=== PATIENT | female | born 1995 | race Caucasian/White ===

== ENCOUNTER 2024-01-26 12:23 | Emergency (ER) | payer OTHER, SELFPAY ==
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
[2024-01-26 12:30] VITALS: BP 125/67; PULSE 70; RESP 18; TEMP 36.5; O2SAT 100; BMI 19.2
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
[2024-01-26 15:52] VITALS: BP 110/68; PULSE 56; RESP 17; TEMP 36.9; O2SAT 100
[2024-01-26 16:44] VITALS: BP 118/68; PULSE 60; RESP 18; TEMP 36.7; O2SAT 99
[2024-01-26 17:16] VITALS: BP 118/68; PULSE 60; RESP 18; TEMP 36.7; O2SAT 100
== END 2024-01-26 17:17 | disposition home or self-care (01) ==
PROVIDERS: Emergency Provider Emergency Medicine
DX: S00.81XA Abrasion of other part of head, initial encounter (principal); Y04.2XXA Assault by strike against or bumped into by another person, initial encounter; Y93.9 Activity, unspecified; Y92.9 Unspecified place or not applicable; Y99.9 Unspecified external cause status; M54.2 Cervicalgia; R68.84 Jaw pain
CPT/HCPCS: 70450; 70486; 72125; 99282; 99284

== ENCOUNTER 2024-06-15 18:21 | Emergency (ER) | payer OTHER, SELFPAY ==
--- NOTE | ~2024-06-15 | CT_ITS ---
EXAMINATION: CT ABDOMEN AND PELVIS WITH CONTRAST CLINICAL INFORMATION: Right lower quadrant pain with nausea and vomiting COMPARISON: Right lower quadrant pain with nausea and vomiting TECHNIQUE: Multidetector volumetric imaging was performed from the superior aspect of the liver through the pubic symphysis with intravenous contrast. A total of 85 mL of Omnipaque 350 was utilized for the study. Sagittal and coronal reformatted images were obtained on the technologist's workstation. This CT examination was performed using dose optimization techniques as appropriate, variously including the following: *Automated exposure control *Adjustment of mA and/or kV according to patient size (this includes techniques or standardized protocols for targeted exams where dose is matched to indication/reason for exam; i.e. extremities or head) *Use of iterative reconstruction technique DLP: 306 mGy-cm FINDINGS: LUNG BASES: The visualized lung bases are unremarkable. LIVER, GALLBLADDER, AND BILIARY TREE: The liver is enlarged measuring 18 cm in greatest length. No focal hepatic lesion. There is some periportal edema present but no gross biliary ductal dilatation is present. The gallbladder appears to contain multiple small polyps, possibly adenomyomatosis. Ultrasound would be best for further evaluation. There is no evidence of radiopaque gallstones, gallbladder wall thickening, or obvious pericholecystic inflammatory changes. PANCREAS: Unremarkable. SPLEEN: Unremarkable. ADRENAL GLANDS: Unremarkable. KIDNEYS AND URETERS: The kidneys are normal in size, shape, and attenuation. No hydronephrosis, hydroureter, or calculi seen. No perinephric stranding. BLADDER: Unremarkable. GASTROINTESTINAL TRACT: The small and large bowel are unremarkable. The appendix is unremarkable. ABDOMINAL WALL: No significant hernia is appreciated. LYMPH NODES: No retroperitoneal lymphadenopathy. VASCULAR: Unremarkable. PELVIC VISCERA: An anteverted uterus is present. The ovaries appear unremarkable with a collapsed crenated cyst with enhancing vilchis on the right. No significant free intraperitoneal fluid is present. OSSEOUS STRUCTURES: Unremarkable. CT/CT abdomen pelvis w IV con IMPRESSION: 1. A definitive cause for the patient's right lower quadrant pain has not been found. The appendix is normal. 2. Incidental note made of mild hepatomegaly, periportal edema and possible gallbladder polyps. Ultrasound would be best for further evaluation. 3. Benign-appearing collapsed right ovarian cyst. Perhaps cyst ruptured could be contributing to the patient's discomfort No additional follow-up is necessary. Fleischner guidelines were followed. Electronically signed by: Dimas Peñaloza MD 06/15/2024 10:18 PM PASHA
[2024-06-15 18:24] VITALS: BP 154/86; PULSE 104; RESP 20; TEMP 36.8; O2SAT 96; BMI 20.2
--- NOTE | 2024-06-15 18:28 | ED_ITS ---
HPI - General Adult General Chief complaint: Abdominal Pain Stated complaint: abd pain Time Seen by Provider: 06/15/24 21:09 Source: patient and old records reviewed Mode of arrival: ambulatory Limitations: no limitations History of Present Illness ED Provider: IVETT HPI narrative: 29 yo female no sig PMH hx of pyloric stenosis surg as , c section notes recent increase in abdominal pain on and off but this AM pain much worse. She reports n/v chills and poor appetite. No symptoms. No fevers. Took tylenol and advil at 5pm no relief. Notes pain in RLQ MD complaint: abdominal pain Onset (ago): day(s) (1) Location: abdomen Radiation: non-radiation Severity: moderate Quality: aching Pain Consistency: constant Relieving factors: none Exacerbating factors: movement Associated symptoms: loss of appetite, malaise and nausea/vomiting Treatments prior to arrival: NSAID Related Data Previous Rx's ?Medication ?Instructions ?Recorded ketorolac 10 mg tablet 10 mg PO TID PRN pain 5 days #15 06/15/24 tabs ondansetron 4 mg disintegrating 4 mg PO Q8H PRN nausea and 06/15/24 tablet vomiting #20 tabs Allergies Allergy/AdvReac Type Severity Reaction Status Date / Time iodine Allergy Hives Verified 06/15/24 18:27 Review of Systems 2 Review of Systems: Constitutional : No Weight loss, No Fever, pos Chills ENT/Mouth : No sore throat, No Rhinorrhea Eyes: No Swelling, No Redness Cardiovascular : No Chest Pain, No SOB, NoEdema Respiratory : No Cough, No Sputum, No Wheezing Gastrointestinal : Positive Nausea, Positive Vomiting, no Diarrhea, positive abdominal Pain, No Hematochezia, No Melena Genitourinary : No Dysuria, No Urinary Frequency, No Hematuria, No Urgency Musculoskeletal : No joint pain, No Myalgias, No Joint Swelling Skin : No Skin Lesions, No rash Neuro : No Weakness, No Numbness, No Dizziness, No Headache All other systems reviewed and are negative. [facility] Past Medical History Attestation statement: The following information was validated with the patient. Source: old records reviewed Medical History (Updated 06/15/24 @ 22:47 by Lilliam Saeed DO) No pertinent past medical history Social History Social History (Updated 06/15/24 @ 21:42 by Lilliam Saeed DO) Alcohol intake: current Alcohol intake frequency: holidays/special occasions only Patient Tobacco Use Status: Never used Tobacco Smoked in Last 30 Days: Yes Use of substances other than those prescribed or required for medical reasons: Yes Substance Use Type: Marijuana Advance Directives: No Advance Directives Information Provided: No Do you have a plan to hurt others: No Plan Patient : No Physical Exam ED Vital Signs: Vital Signs - 24 hr 06/15/24 18:24 06/15/24 20:38 06/15/24 21:28 Temperature 98.3 F 98.3 F 98.1 F Pulse Rate 104 H 69 57 Respiratory Rate 20 20 16 Blood Pressure 154/86 H 121/75 106/71 Pulse Oximetry 96 98 97 Oxygen Delivery Method Room Air Room Air Room Air 06/15/24 22:59 Temperature 98.1 F Pulse Rate 57 Respiratory Rate 16 Blood Pressure 106/71 Pulse Oximetry 97 Oxygen Delivery Method Room Air BMI result Body Mass Index 20.2 Appearance: Alert. Oriented X3. No acute distress. Eyes: Pupils equal, round and reactive to light. ENT: Pharynx normal. Neck: Normal inspection. Neck supple. CVS: Normal heart rate and rhythm. Pulses normal. Respiratory: No respiratory distress. Breath sounds normal. Abdomen: Soft and moderate RLQ ttp no rebound. Skin: Skin warm and dry. Normal skin color. Normal skin turgor. Extremities: No lower extremity edema. No calf ttp Neuro: Oriented X 3. No motor deficit. No sensory deficit. Course Course Course Narrative: RME performed by Desire Clifford PA-C. Patient is a 29 year old assigned female at presenting to the emergency department with severe abdominal pain. Detailed physical exam and review of systems are deferred to the primary products inspectors. Labs ordered. Patient placed back in the waiting room pending room availability and results. Medications Administered Discontinued Medications Generic Name Dose Route Start Last Admin Trade Name Freq PRN Reason Stop Dose Admin Acetaminophen 1,000 mg in 100 mls @ 400 mls/hr 06/15/24 21:23 06/15/24 21:39 Ofirmev IV 06/15/24 21:37 400 mls/hr ONCE ONE Administration Iohexol 85 ml 06/15/24 21:46 06/15/24 21:46 Iohexol 350 Mg/Ml 100 Ml Infus..Btl IV 06/15/24 21:47 85 ml ONCE ONE Administration Ketorolac Tromethamine 15 mg 06/15/24 21:23 06/15/24 21:38 Ketorolac Tromethamine 15 Mg/Ml Vial IVPUSH 06/15/24 21:24 15 mg ONCE ONE Administration Ondansetron HCl 4 mg 06/15/24 21:23 06/15/24 21:38 Ondansetron Hcl 4 Mg/2 Ml Vial IVPUSH 06/15/24 21:24 4 mg ONCE ONE Administration Medical Decision Making Medical Decision Making MDM Narrative: 29 yo female no sig PMH hx of pyloric stenosis surg as infant, c section here with c/o 1 day of RLQ Pain no rebound or guarding reports n/v and chills - at this time basic labs, IV pain control. CT scan to evaluate for colitis, ovarian cyst, renal colic, appendicitis. Differential Diagnosis Differential Diagnoses: The differential diagnosis associated with the presentation includes renal colic, appendicitis, ovarian cyst, colitis Admission/Observation Consideration of admission/observation: Escalation of care including admission/observation considered labs normal CT scan ovarian cyst doubt torsion at this time no IV narcotics abdomen is benign no rebound or guarding Lab Data [facility] Lab Attestation statement: I reviewed the patient's lab results. 06/15/24 18:42 06/15/24 18:42 Labs: Lab Results 06/15/24 06/15/24 Range/Units 18:42 20:46 WBC 11.9 H (4.8-10.8) X10*3/uL RBC 4.45 (4.20-5.50) X10*6/uL Hgb 14.0 (12.0-16.0) g/dl Hct 39.2 (37.0-47.0) % MCV 88.1 (80.0-98.0) fL MCH 31.5 (27.0-33.0) pg MCHC 35.7 H (31.0-35.0) g/dl RDW 11.9 (11.0-16.0) % Plt Count 317 (160-400) X10*3/uL MPV 9.3 L (9.4-12.3) fL Immature Gran % (Auto) 0.3 (0.0-0.4) % Neut % (Auto) 62.3 (45-73) % Lymph % (Auto) 27.1 (20-40) % Meigs % (Auto) 8.7 (2-11) % Eos % (Auto) 0.8 (0-4) % Baso % (Auto) 0.8 (0-2) % Lymph # (Auto) 3.2 (1.2-4.9) X10*3/uL Meigs # (Auto) 1.0 (0.1-1.2) X10*3/uL Eos # (Auto) 0.1 (0.0-0.4) X10*3/uL Baso # (Auto) 0.1 (0.0-0.2) X10*3/uL Abs Immat Gran (auto) 0.03 (0.00-0.03) X10*3/uL Absolute Neuts (auto) 7.4 (2.0-8.3) x10*3/uL Absolute Nucleated RBC 0.000 (0.0-0.012) X10*3/uL Nucleated RBC % (auto) 0.0 (0.0-0.2) /100WBC Sodium 138 (135-145) mmol/L Potassium 4.0 (3.3-5.1) mmol/L Chloride 103 (96-108) mmol/L Carbon Dioxide 26 (22-29) mmol/L Anion Gap 13 (12-20) BUN 17 H (9-16) mg/dL Creatinine 0.79 (0.5-1.4) mg/dL Estim Creat Clear Calc 84.4 Estimated GFR > 60 Random Glucose 95 (60-115) mg/dL Calcium 10.2 (8.4-10.2) mg/dL Magnesium 2.0 (1.6-2.6) mg/dL Total Bilirubin 0.7 (0.0-1.0) mg/dL AST 30 (5-31) U/L ALT 19 (0-31) U/L Alkaline Phosphatase 76 (39-117) U/L Total Protein 7.7 (6.5-8.0) g/dL Albumin 4.7 (3.5-5.0) g/dL Beta HCG, Quant < 2 mIU/mL Urine Color Yellow Urine Appearance Clear Urine pH 6.5 (5.0-9.0) Ur Specific [place] 1.020 (1.005-1.025) Urine Protein Negative (Neg-Trace) mg/dL Urine Glucose (UA) Negative (Negative) mg/dL Urine Ketones Negative (Negative) mg/dL Urine Blood Negative (Negative) Urine Nitrite Negative (Negative) Ur Leukocyte Esterase Negative (Negative) Influenza Type A (PCR) NEGATIVE (Negative) Influenza Type B (PCR) NEGATIVE (Negative) RSV RNA Qual (PCR) NEGATIVE (Negative) SARS-CoV-2 RNA (RT-PCR) NEGATIVE (Negative) Independent Interpretation I performed an independent interpretation of an: CT Scan (ovarian cyst) Radiology Impression Discussion of test interpretation with radiology: I have reviewed the radiologist's reading. External Record Review External record reviewed: Outpatient record Prescription Management I considered prescription management with: Pain Medication and Other Discharge Plan Discharge Clinical Impression: Abdominal pain Qualifiers: Abdominal location: right lower quadrant Qualified Code(s): R10.31 - Right lower quadrant pain Ovarian cyst Qualifiers: Laterality: right Qualified Code(s): N83.201 - Unspecified ovarian cyst, right side Patient Disposition: Home, Self-Care Instructions: Ovarian Cyst (ED), Abdominal Pain (ED) Additional Instructions: labs reassuring return for worsening pain or fevers > 100.4 repeat US of ovary in 4 weeks ultrasound of liver and gallbladder with PCP your labs for liver are normal while on ketorolac do not take ibuprofen/motrin/aleve/naprosyn CT/CT abdomen pelvis w IV con IMPRESSION: 1. A definitive cause for the patient's right lower quadrant pain has not been found. The appendix is normal. 2. Incidental note made of mild hepatomegaly, periportal edema and possible gallbladder polyps. Ultrasound would be best for further evaluation. 3. Benign-appearing collapsed right ovarian cyst. Perhaps cyst ruptured could be contributing to the patient's discomfort No additional follow-up is necessary. Prescriptions: New ketorolac 10 mg tablet 10 mg PO TID PRN (Reason: pain) 5 Days Qty: 15 0RF Rx Instructions: given IV toradol in department ondansetron 4 mg tablet,disintegrating 4 mg PO Q8H PRN (Reason: nausea and vomiting) Qty: 20 0RF Interventions: ED Discharge Assessment Last Done: 06/15/24 22:59 Discharge Date/Time: 06/15/24 23:10 Print Language: Frisian
[2024-06-15 18:46] LABS: MANUAL DIFF FLAG NO
[2024-06-15 18:48] LABS: Basophils Absolute Auto 0.1 X10*3/uL (0.0-0.2); Basophils Percent Auto 0.8 % (0-2); Eosinophils Absolute Auto 0.1 X10*3/uL (0.0-0.4); Eosinophils Percent Auto 0.8 % (0-4); Hematocrit 39.2 % (37.0-47.0); Imm Gran Abs Auto 0.03 X10*3/uL (0.00-0.03); Imm Gran Pct Auto 0.3 % (0.0-0.4); Lymphocytes Absolute Auto 3.2 X10*3/uL (1.2-4.9); Lymphocytes Percent Auto 27.1 % (20-40); Mean Corpuscular HGB Conc 35.7 g/dl (31.0-35.0); Mean Corpuscular Hemoglobin 31.5 pg (27.0-33.0); Mean Corpuscular Volume 88.1 fL (80.0-98.0); Mean Platelet Volume 9.3 fL (9.4-12.3); Monocytes Percent Auto 8.7 % (2-11); Neutrophils Absolute Auto 7.4 x10*3/uL (2.0-8.3); Neutrophils Percent Auto 62.3 % (45-73); Platelet Count 317 X10*3/uL (160-400); Red Blood Count 4.45 X10*6/uL (4.20-5.50); Red Cell Distribution Width 11.9 % (11.0-16.0); White Blood Count 11.9 X10*3/uL (4.8-10.8)
[2024-06-15 19:00] LABS: Alanine Aminotransferase 19 U/L (0-31); Albumin Level 4.7 g/dL (3.5-5.0); Alkaline Phosphatase 76 U/L (39-117); Anion Gap 13 (12-20); Aspartate Amino Transferase 30 U/L (5-31); Bilirubin Total 0.7 mg/dL (0.0-1.0); Blood Urea Nitrogen 17 mg/dL (9-16); Calcium 10.2 mg/dL (8.4-10.2); Carbon Dioxide 26 mmol/L (22-29); Chloride 103 mmol/L (96-108); Creatinine Clr Calc Pharmacy 84.4; Estimated Glomerular Filt Rate > 60; Glucose Random 95 mg/dL (60-115); Sodium 138 mmol/L (135-145); Total Protein 7.7 g/dL (6.5-8.0)
[2024-06-15 19:08] LABS: HCG Quantitative < 2 mIU/mL
[2024-06-15 19:23] LABS: Influenza A PCR NEGATIVE (Negative); Influenza B PCR NEGATIVE (Negative); Resp Syncy Virus RNA Qual PCR NEGATIVE (Negative); SARS COV2 PCR INHOUSE NEGATIVE (Negative)
[2024-06-15 20:38] VITALS: BP 121/75; PULSE 69; RESP 20; TEMP 36.8; O2SAT 98
[2024-06-15 20:54] LABS: Appearance Urine Clear; Color Urine Yellow; Glucose Urine UA Negative (Negative); Leukocyte Esterase Urine Negative (Negative); Nitrite Urine Negative (Negative); PH 6.5 (5.0-9.0); Urine Blood Negative (Negative); Urine Ketones Negative (Negative); Urine Protein Negative (Neg-Trace)
[2024-06-15 21:28] VITALS: BP 106/71; PULSE 57; RESP 16; TEMP 36.7; O2SAT 97
[2024-06-15] MEDS: Ketorolac Tromethamine 15 MG/ML VIAL IVPUSH (21:38)
[2024-06-15] MEDS: ondansetron HCL 4 MG/2 ML VIAL IVPUSH (21:38)
[2024-06-15] MEDS: Acetaminophen 1,000 MG/100 ML PIGGYBACK 400 MG IV (21:39)
--- NOTE | 2024-06-15 21:42 | PC.NURSE ---
#20 IV placed in R-AC, medication administered as ordered, pt went to CT.
[2024-06-15] MEDS: iohexoL 350 MG/ML 100 ML INFUS..BTL 85 ML IV (21:46)
[2024-06-15 22:59] VITALS: BP 106/71; PULSE 57; RESP 16; TEMP 36.7; O2SAT 97
== END 2024-06-15 23:10 | disposition home or self-care (01) ==
PROVIDERS: Physician Assistant Medical; Emergency Provider Emergency Medicine
DX: R10.31 Right lower quadrant pain (principal); N83.201 Unspecified ovarian cyst, right side; R11.2 Nausea with vomiting, unspecified
CPT/HCPCS: 0241U; 36415; 74177; 80053; 81003; 83735; 84702; 85025; 96374; 96375; 99285; J0131; J1885; J2405; Q9967

== ENCOUNTER 2024-09-03 13:38 | Outpatient (AMB) | payer OTHER, SELFPAY ==
[2024-09-03 13:44] VITALS: BP 100/60; BMI 20.1
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
--- OUTSIDE RECORDS SUMMARY | 2024-09-03 13:47 | XMS_ITS | Encounter Summary ---
Author Organization [facility] Address [address] [place] [address] Care Team Providers Care Air Compressor Operator Name Role Phone Pcp, No Primary Care Provider Unavailabl e Ish Hare MD Unavailable [phone] Encounter Details Date Type Department Care Team (Late st Contact Info) Description 04/27/2021 Prep for Surgery [facility] [address] [place] [phone] Ish Hare MD [address] [address] Social History Tobacco Use Types Packs/Day Years Used Date Smoking Tobacco: Light Smoker E-Cigarettes Smokeless Tobacco: Never Alcohol Use Standard Drinks/Week Comments Yes 0 (1 standard drink = 0.6 oz pur e alcohol) Sex and Gender Information Value Date Recorded Sex Assigned at Not on file Gender Identity Not on file Sexual Orientation Not on file COVID-19 Exposure Response Date Recorded In the last month, have you been in contact with someone who was confirmed or suspected to have Coronavirus / COVID-19? No / Unsure 04/28/2021 8:11 AM EDT documented as of this encounter Plan of Treatment Not on file documented as of this encounter Visit Diagnoses Not on filedocumented in this encounter Care Teams Air Compressor Operator Relationship Specialty Start Date End Date Pcp, No PCP - General General Medicine 08/31/19 Ish Hare MD [address] [address] [phone] (work) ANGÉLICA - [employer] Attributed 12/20/21 06/20/23 documented as of this encounter
--- OUTSIDE RECORDS SUMMARY | 2024-09-03 13:47 | XMS_ITS | Clinical Summary ---
Author Organization [facility] Address [address] [place] [address] Care Team Providers Care Qi Specialist Name Role Phone Pcp, No Primary Care Provider Unavailabl e Allergies Active Allergy Reactions Criticality Noted Date Comments Iodine Unknown/Patient and Family Unable to Define Medium 08/31/2019 Medications Medication Sig Dispensed Refills Start Date End Date Status HYDROmorphone (DILAUDID) 2 MG tabletIndications:Pr egnancy Take 1 tablet (2 mg total) by mouth every 4 (four) hours as needed for moderate pain (one to two tablets as needed every four hours). Max Daily Amount: 12 mg 30 tablet 07/20/2021 Active ibuprofen (MOTRIN) 600 MG tabletIndications:Pr egnancy Take 1 tablet (600 mg total) by mouth 4 times daily (every 6 hours) as needed for mild pain. 100 tablet 07/20/2021 Active Active Problems Problem Noted Date Diagnosed Date 07/18/2021 Breech presentation 07/18/2021 Overview (07/18/2021): Added automatically from request for surgery [id number] Migraine with aura and witho ut status migrainosus, not intractable 08/31/2019 Immunizations Name Administration Dates Next Due Influenza Inactivated/Split Preservative Free IM 07/21/2021 Rho (D) Immune Globulin 04/28/2021 Tdap 05/22/2021 Family History Medical History Relation Name Comments No Known Problems Father Fibromyalgia Mother Relation Name Status Comments Father Mother Social History Tobacco Use Types Packs/Day Years Used Date Smoking Tobacco: Former E-Cigarettes Quit: 11/20/2020 Smokeless Tobacco: Never Alcohol Use Standard Drinks/Week Comments Not Currently 0 (1 standard drink = 0.6 oz pur e alcohol) Sex and Gender Information Value Date Recorded Sex Assigned at Not on file Gender Identity Not on file Sexual Orientation Not on file Last Filed Vital Signs Vital Sign Reading Time Taken Comments Blood Pressure 131/66 07/21/2021 3:00 AM EST Pulse 63 07/21/2021 3:00 AM EST Temperature 36.6 ??C (97.9 ??F) 07/21/2021 3:00 AM ES T Respiratory Rate 16 07/21/2021 3:00 AM EST Oxygen Saturation 98% 07/21/2021 10:45 AM EST Inhaled Oxygen Concentration - - Weight 77.1 kg (170 lb) 07/18/2021 3:01 AM EST Height 157 cm (5' 1.81 ) 07/18/2021 11:27 AM EST Body Mass Index 31.28 07/18/2021 3:01 AM EST Plan of Treatment Health Maintenance Due Date Last Done Comments Hepatitis B Vaccines (1 of 3 - 19+ 3-dose series) 2016 Pap Smear (Ages 21-65) 2018 Influenza Vaccine 02/20/2024 07/21/2021 COVID-19 Vaccine ( - 2023- season) 2024 DTaP/Tdap/Td Vaccines (2 - Td or Tdap) 05/22/2031 05/22/2021 Hepatitis C Virus Screening Completed 06/02/2018, 0 07/30/2017 HIV Screening Completed 04/25/2021, 11/20, 06/02/2018, Additional history exists HPV Vaccines Aged Out No longer eligi ble based on patient's age to complete this topic Pneumococcal Vaccine: Pediatric (0-5 Years) and At-Risk Patients (6 to 49 Years) Aged Out No longer eligible based on patient's age to complete this topic Goals Goal Patient Goal Type Associated Problems Recent Progress Patient-Stated? Author TO DELIVER A HEALTHY BABY Diet On track( 2:10 PM EST) No Hyacinth Mann, RN TO LEARN HOW TO TEST BLOOD SUGARS Diet On track( 2:10 PM EST) Hyacinth Rutledge, RN TO LEARN HOW TO COUNT CARBOHYDRATES Diet On track( 2:10 PM EST) Hyacinth Rutledge RN Procedures Procedure Name Priority Date/Time Associated Diagnosis Comments HIV 1/2 AG/AB CMIA REFLEX TO CONFIRMATION Routine 04/25/2021 HXCH HEPATITIS C AB Routine 06/02/2018 1 0:18 AM EST from Last 3 Months or Most Recently Relevant to Health Maintenance Results * HIV 1/2 Ag/Ab CMIA Reflex to Confirmation (04/25/2021) HIV 1/2 Ag/Ab CMIA negative EXTERNAL LAB Blood specimen (specimen) Blood specimen / Unknown External Provider MD LAB BLOOD ORDERABLE S EXTERNAL LAB * Hepatitis C Ab (06/02/2018 10:18 AM EST) Hepatitis C Antibody NON-REACT MARIE NON-REACT MARIE MEDITECH CONVERSION Hepatitis C Antibody (s/co) 0.02 <1.00 MEDITECH CONVERSION Comment: Test performed at [email or web address] [address] [place] [address] [address] [place], [place] ??[phone] Director: HUSSEIN TODD MD 06/02/2018 10:1 8 AM EST 06/02/2018 10:18 AM EST Ish Hare MD HX LAB MEDITECH CONVERSION from Last 3 Months or Most Recently Relevant to Health Maintenance Advance Directives * Full Code (Latest Code Status on File) Date Activated Date Inactivated Comments 07/18/2021 2:23 PM * Full Code Date Activated Date Inactivated Comments 07/18/2021 2:47 AM 07/18/2021 2:23 PM * Full Code Date Activated Date Inactivated Comments 08/31/2019 2:11 PM 11/23/2019 8:57 AM Care Teams Qi Specialist Relationship Specialty Start Date End Date Pcp, No PCP - General General Medicine 08/31/19
== END 2024-09-03 14:21 | disposition home or self-care (01) ==
PROVIDERS: Visit Provider Advanced Practice Midwife
DX: Z30.09 Encounter for other general counseling and advice on contraception (principal); Z87.42 Personal history of other diseases of the female genital tract; Z87.898 Personal history of other specified conditions
CPT/HCPCS: 99203

== ENCOUNTER → 2024-09-03 13:38 | Outpatient (BNVA) | payer OTHER, SELFPAY | PROVIDERS: Visit Provider Advanced Practice Midwife | DX: Z30.09 Encounter for other general counseling and advice on contraception (principal); Z87.42 Personal history of other diseases of the female genital tract; Z87.898 Personal history of other specified conditions | CPT/HCPCS: 99202 ==

== ENCOUNTER 2024-12-15 09:06 | Outpatient (REF) | payer OTHER, SELFPAY | END 2024-12-15 09:07 | disposition home or self-care (01) | LOC: HO.LAB 09:06 | PROVIDERS: Visit Provider Advanced Practice Midwife | DX: Z30.09 Encounter for other general counseling and advice on contraception (principal); N89.8 Other specified noninflammatory disorders of vagina | CPT/HCPCS: 81025; 81515; 87491; 87591; 99212 ==

== ENCOUNTER 2024-12-15 09:06 | Outpatient (AMB) | payer OTHER, SELFPAY ==
--- NOTE | 2024-12-15 09:12 | MHC.OFFVIS ---
Vital Signs 12/15/24 09:15 Height 5 ft 2 in Weight 104 lb BMI 19.0 BP 102/66 Intake Visit Reasons: STI testing, birthcontrol consult Allergies iodine Allergy (Verified 09/03/24 13:45) Hives Is last menstrual period known: Yes Last menstrual period: 12/02/24 HPI Comments Details: Patient is here today for control. She reports having nausea for multiple days after taking her pill, she is unsure if it was due to her gallbladder issues, and prefers to going back onto the Nexplanon. She also has recently experienced a vaginal odor that comes and goes. She denies any pelvic pain or itching. Currently not sexually active. She denies any risk factors to Nexplanon device. [facility] Medical History Pyloric stenosis No pertinent past medical history Surgical History Hx of section Family History Family/Other Ovarian cancer Father Thyroid cancer Social History Alcohol intake: current Alcohol intake frequency: holidays/special occasions only Patient Tobacco Use Status: Never used Tobacco Substance Use Type: Marijuana Female Reproductive History Menstrual Age of Menarche: 13 Date of last menstrual period: 12/02/24 control method: none Total pregnancies: 2 Full term: 1 Number of Living Children: 1 Ab spontaneous: 1 Review of Systems Const All systems reviewed & are unremarkable except as noted in HPI and below Physical Exam Vital Signs: Last Vital Signs BP 102/66 12/15/24 09:15 BMI result Body Mass Index 19.0 Const General: cooperative, healthy appearing and no acute distress Orientation/consciousness: patient oriented x3 GI Inspection: Yes normal to inspection Palpation (GI): Soft to palpation and Other GI palpation findings present (Nontender) Rectal Exam - Female: visual inspection normal General: Yes bladder normal to palpation External Female Exam: normal appearance of the urethra Speculum Exam - Vagina: normal appearance of the vagina, normal palpation, normal vaginal discharge and vaginal bleeding (Brown mucousy blood at cervical os) Speculum Exam - Cervix: normal appearance of the cervix and normal palpation Bimanual exam- vagina & uterus: normal bimanual exam, normal palpation, uterine size normal, bladder normal to palpation, normal palpation, uterine shape normal and non-tender Bimanual Exam- Adnexa, other: normal adnexae OB/external & speculum: vaginal bleeding (Brown mucousy blood at cervical os) Neuro General: patient oriented x3 Results AMB Test Urine AMB Test Urine Negative Last Edit by CIARA Silva on 12/15/24 09:21 Assessment & Plan Assessment & Plan (1) control counseling: Code(s): Z30.09 - Encounter for other general counseling and advice on contraception Category: Medical Plan: Counseled: On control options including NuvaRing, patch, Depo-Provera, IUD, Nexplanon. She would prefer to go back to using the Nexplanon due to ease of it and risk of forgetting to change her control at home. Advised to come back in the 1st 5 days for menstrual cycle for initiation of her control, no unprotected intimacy. (2) Screening examination for STI: Code(s): Z11.3 - Encounter for screening for infections with a predominantly sexual mode of transmission Plan: Cultures obtained. Declines blood work. (3) Vaginal odor: Code(s): N89.8 - Other specified noninflammatory disorders of vagina Plan: Offered STD blood work-declines. GC chlamydia and BV panel obtained await results for plan of care. Advised to consistently always use condoms for prevention of STDs. Plan The patient expressed understanding and agreement with the plan of care. All of her questions and concerns were addressed to the best of my ability. This note is constructed using voice recognition software. While every effort has been made to ensure accuracy, shipping and receiving material handler errors may have been included. Orders: Orders AMB HCG Urine Test Today Z32.02 - Encounter for test, result negative Coding Level of Care Code Est Pt Level 3 (45238) Diagnoses control counseling Z30.09 Screening examination for STI Z11.3 Vaginal odor N89.8
[2024-12-15 09:15] VITALS: BP 102/66; BMI 19.0
--- OUTSIDE RECORDS SUMMARY | 2024-12-15 09:35 | XMS_ITS | Clinical Summary ---
Author Organization [facility] Address [address] [place] [address] Care Team Providers Care African Studies Professor Name Role Phone Pcp, No Primary Care Provider Unavailabl e Allergies Active Allergy Reactions Criticality Noted Date Comments Iodine Unknown/Patient and Family Unable to Define Medium 08/31/2019 Medications HYDROmorphone (DILAUDID) 2 MG tabletIndicatio ns: Take 1 tablet (2 mg total) by mouth every 4 (four) hours as needed for moderate pain (one to two tablets as needed every four hours). Max Daily Amount: 12 mg 30 tablet 07/20/2021 Active ibuprofen (MOTRIN) 600 MG tabletIndicatio ns: Take 1 tablet (600 mg total) by mouth 4 times daily (every 6 hours) as needed for mild pain. 100 tablet 07/20/2021 Active Active Problems Problem Noted Date Diagnosed Date 07/18/2021 Breech presentation 07/18/2021 Overview (07/18/2021): Added automatically from request for surgery [id number] Migraine with aura and witho ut status migrainosus, not intractable 08/31/2019 Immunizations Immunization Administration Dates Next Due Influenza Inactivated/Split Preservative [...] drink = 0.6 oz pur e alcohol) Comments No Sex and Gender Information Value Date Recorded Sex Assigned at Not on file Legal Sex Female 1:47 PM EDT Gender Identity Not on file Sexual Orientation [...] series) 2016 Pap Smear (Ages 21-65) 2018 COVID-19 Vaccine ( - 2023- season) 2024 Influenza Vaccine 02/19/2025 07/21/2021 DTaP/Tdap/Td Vaccines (2 - Td or Tdap) [...] SUGARS Diet On track( 2:10 PM EST) No Hyacinth aMnn, RN TO LEARN HOW TO COUNT CARBOHYDRATES Diet On track( 021 2:10 PM EST) No Hyacinth Mann RN Procedures Procedure Name Priority Date/Time Associated [...] (specimen) Blood specimen / Unknown External Provider LAB BLOOD ORDERABLES Final Result EXTERNAL LAB * Hepatitis C Ab (06/02/2018 10:18 AM EST) Hepatitis C Antibody NON-REACT MARIE NON-REACT MARIE MEDITECH CONVERSION Hepatitis C Antibody (s/co) 0.02 <1.00 MEDITECH CONVERSION Comment: Test performed at [facility] [address] [place] [address] [address] [place], [place] ??[phone] Director: HUSSEIN TODD MD 06/02/2018 10:1 8 AM EST 06/02/2018 10:18 AM EST Ish Hare MD HX LAB Final Result MEDITECH CONVERSION from Last 3 Months or Most Recently Relevant to Health Maintenance Insurance [facility] Advance Directives * Full Code (Latest Code Status on File) Date Activated Date Inactivated Comments 07/18/2021 2:23 PM * Full Code Date Activated Date Inactivated Comments 07/18/2021 2:47 AM 07/18/2021 2:23 PM * Full Code Date Activated Date Inactivated Comments 08/31/2019 2:11 PM 11/23/2019 8:57 AM Care Teams African Studies Professor Relationship Specialty Start Date End Date Pcp, No PCP - General General Medicine 08/31/19
== END 2024-12-15 09:39 | disposition home or self-care (01) ==
LOC: HO.HWS 09:06
PROVIDERS: Visit Provider Advanced Practice Midwife
DX: N89.8 Other specified noninflammatory disorders of vagina (principal); Z30.09 Encounter for other general counseling and advice on contraception; Z32.02 Encounter for pregnancy test, result negative
CPT/HCPCS: 99213

== ENCOUNTER 2024-12-15 10:05 | Outpatient (REF) | payer OTHER, SELFPAY ==
[2024-12-15 17:49] LABS: Bacterial Vaginosis PCR POSITIVE (Negative); Candida Group PCR NOT DETECTED (Not Detect); Candida glab krusei PCR NOT DETECTED (Not Detect); Trichomonas vaginalis PCR NOT DETECTED (Not Detect)
[2024-12-15 18:21] LABS: CT PCR NOT DETECTED (Not Detect.); NG PCR NOT DETECTED (Not Detect.)
== END 2024-12-15 10:06 | disposition home or self-care (01) ==
LOC: HO.LNP 10:05
PROVIDERS: Visit Provider Advanced Practice Midwife
DX: Z13.89 Encounter for screening for other disorder (principal)
CPT/HCPCS: 81515; 87491; 87591

== ENCOUNTER 2025-01-05 09:52 | Outpatient (AMB) | payer OTHER, SELFPAY ==
--- NOTE | 2025-01-05 09:55 | MHC.OFFVIS ---
Vital Signs 01/05/25 09:56 Height 5 ft 2 in Weight 104 lb BMI 19.0 BP 98/60 Intake Visit Reasons: Nexplanon insertion Allergies seafood Allergy (Severe, Verified 01/05/25 12:53) Unknown iodine Allergy (Verified 09/03/24 13:45) Hives Is last menstrual period known: Yes Last menstrual period: 01/01/25 HPI Comments Details: Patient is here today for a Nexplanon insert. Currently not sexually active. Ending her cycle currently. History of Nexplanon user in the past. [facility] Medical History (Updated 01/05/25 @ 12:25 by Candi Lujan CNM) Nexplanon insertion Pyloric stenosis No pertinent past medical history Surgical History Hx of section Family History Family/Other Ovarian cancer Father Thyroid cancer Social History Alcohol intake: current Alcohol intake frequency: holidays/special occasions only Patient Tobacco Use Status: Never used Tobacco Substance Use Type: Marijuana Female Reproductive History Menstrual Age of Menarche: 13 Date of last menstrual period: 01/01/25 Physical Exam Vital Signs: Last Vital Signs BP 98/60 01/05/25 09:56 BMI result Body Mass Index 19.0 Office Procedures Contraception Insert/Removal Details Details: The patient is here today for a Nexplanon Insertion: She was counseled regarding the risks including and benefits for the Nexplanon device. She denies any risks to . Anticipatory guidance for the insertion procedure was reviewed. The urine test is negative. Risk of the procedure including pain, infection, bleeding, injury to the nerves, blood, vessels and surrounding tissue, migration of the device, unscheduled unpredictable bleeding patterns, weight gain, skin changes including acne. The consent form was signed and the patient request that the Nexplanon device be placed today. Nexplanon Insertion Procedure: The patient was placed in a supine position with her left hand resting under her head. The previous insertion site was located and utilized: 8-10cm from the medial epicondyle notch of the humerus, posterior to the sulcus, between the triceps and biceps muscle. The area was cleansed with an alcohol prep and 3 ml of 1% Lidocaine on a 25 gauge needle and syringe was utilized for adequate anesthesia to the insertion site. After ascertaining adequate anesthesia, the area was prepped with Hibaclens solution. The Nexplanon device was removed from the manufacturers package and the implant was noted in the trocar canal. The trocar was inserted at a 30 degree angle and then lowered parallel to the skin for insertion into the subcutaneous space with counter traction. Direct pressure was applied to the insertion site for hemostasis, minimal bleeding was observed. Steri strips, Tegaderm covering, gauze pads, and Isidro wrap dressing were secured with paper tape. Nexplanon Post-insertion Care: You may experience some mild tenderness, swelling, and bruising from the area. If no allergies or contraindications, you may use a mild over the counter analgesic like Tylenol or Advil (follow the manufacturers recommendations on dosing and frequency of use). Call the office if any symptoms and including: fever (over 100.4), flu like symptoms, signs of infection-redness, pus drainage, pain (beyond usual healing), for any medical changes, suspected , heavy or prolonged vaginal bleeding Seek emergent care in the Emergency department for: sudden visual loss, shortness of breath, severe headache that is not consistent with your usual headaches, heaviness, sharp or severe chest pains, coughing up of blood, persistent pain in one of your extremities, weakness or numbness in an arm, leg or face, tongue or pharynx, trouble swallowing, difficult speaking, hives and trouble breathing, yellowing of skin, whites or eyes, especially with tiredness, loss of appetite, dark colored urine, light colored bowel movements, swelling or tenderness of the abdomen. The Nexplanon does not protect you from STI's, use of condoms is advised. Use a back up method of contraception for 7 days if the device is not placed within the first 5 days of your menses cycle to prevent an unintended . Keep the pressure dressing on and clean and dry for 24 hours, then remove it. You may take the steri strips and Tegaderm off in 5-7days, or sooner if peeling off on its own. Schedule a office post insertion check up in 4-6 weeks. The patient tolerated the procedure well and left the office in good condition. This note is constructed using voice recognition software. ?While every effort has been made to ensure accuracy, business intelligence etl developer errors may have been included. ? 20530 - Insertion Office Meds Nexplanon 68 mg subdermal implant Performing Provider: Candi Lujan CNM Performing Location: [facility] [place] [facility] Administered by: CIARA Silva on 01/05/25 10:41 Dose Route Admin Location Dispensed Lot Number Expiration Date [facility] Cashier And Salesperson 1 implant subdermal 1 implant [id number] 11/18/25 [id number] [employer] Results AMB Test Urine AMB Test Urine Negative Last Edit by CIARA Silva on 01/05/25 10:04 Results Reviewed Results Reviewed: Laboratory Last Values [facility] Negative 01/05/25 10:04 Assessment & Plan Assessment & Plan (1) Nexplanon insertion: Comment: Left side 01/05/2025 Code(s): Z30.017 - Encounter for initial prescription of implantable subdermal contraceptive Category: Medical Plan See procedure notes for details. I This note is constructed using voice recognition software. While every effort has been made to ensure accuracy, business intelligence etl developer errors may have been included. Orders: Orders AMB HCG Urine Test Today Z32.02 - Encounter for test, result negative AMB Nexplanon/Implanon Insertion/Removal - Practice Supplied Today Z30.017 - Encounter for initial prescription of implantable subdermal contraceptive Coding Level of Care Code Procedure Only Diagnoses Nexplanon insertion Z30.017 CPT Codes Details - Contraception: 73010 - Insertion ([id number])
[2025-01-05 09:56] VITALS: BP 98/60; BMI 19.0
--- OUTSIDE RECORDS SUMMARY | 2025-01-05 11:01 | XMS_ITS | Clinical Summary ---
Author Organization [facility] Address [address] [place] [address] Care Team Providers Care Title Processor Name Role Phone Pcp, No Primary Care [...] (07/18/2021): Added automatically from request for surgery [id number] Migraine with aura and witho ut status [...] Hyacinth Mann, RN TO LEARN HOW TO COUNT CARBOHYDRATES [...] <1.00 MEDITECH CONVERSION Comment: Test performed at [facility] [address] [place] [address] [address] [place], [place] ??[address] Director: HUSSEIN TODD MD 06/02/2018 10:1 8 AM EST 06/02/2018 10:18 AM EST Ish Hare MD HX LAB Final Result MEDITECH CONVERSION from Last 3 Months or Most Recently Relevant to Health Maintenance Insurance [facility] Advance Directives * Full Code (Latest Code Status on File) Date Activated Date Inactivated Comments 07/18/2021 2:23 PM * Full Code Date Activated Date Inactivated Comments 07/18/2021 2:47 AM 07/18/2021 2:23 PM * Full Code Date Activated Date Inactivated Comments 08/31/2019 2:11 PM 11/23/2019 8:57 AM Care Teams Title Processor Relationship Specialty Start Date End Date Pcp, No PCP - General General Medicine 08/31/19
== END 2025-01-05 10:37 | disposition home or self-care (01) ==
LOC: HO.HWS 09:52
PROVIDERS: Visit Provider Advanced Practice Midwife
DX: Z30.017 Encounter for initial prescription of implantable subdermal contraceptive (principal); Z32.02 Encounter for pregnancy test, result negative
CPT/HCPCS: 11981

== ENCOUNTER → 2025-01-05 09:52 | Outpatient (BNVA) | payer OTHER, SELFPAY | PROVIDERS: Visit Provider Advanced Practice Midwife | DX: Z30.017 Encounter for initial prescription of implantable subdermal contraceptive (principal) | CPT/HCPCS: 11981; 81025; J7307 ==

== ENCOUNTER 2025-02-11 11:00 | Outpatient (REF) | payer OTHER, SELFPAY | END 2025-02-11 11:01 | disposition home or self-care (01) | LOC: HO.LNP 11:00 | PROVIDERS: Visit Provider Advanced Practice Midwife | DX: Z01.419 Encounter for gynecological examination (general) (routine) without abnormal findings (principal) | CPT/HCPCS: 88175; 99395 ==

== ENCOUNTER 2025-02-11 11:00 | Outpatient (AMB) | payer OTHER, SELFPAY ==
--- NOTE | 2025-02-11 11:09 | A.OFFVIS_ITS ---
Vital Signs 02/11/25 11:12 Height 5 ft 2 in Weight 114 lb 2 oz BMI 20.9 BP 98/56 L Blood Pressure Location Rt brachial Position Sitting Intake Visit Reasons: Annual/ Nexplanon Check Coin Rolling Machine Operator Required: No Allergies seafood Allergy (Severe, Verified 02/11/25 11:17) Unknown iodine Allergy (Verified 02/11/25 11:17) Hives Medication List - Last Reconciled 02/11/25 by Maye Batista LPN etonogestrel (Nexplanon) subdermal Is last menstrual period known: Yes Last menstrual period: 01/04/25 Post menopausal: No Patient : No Do you need a note to return to daycare/school/sports/work: No HPI Comments Details: Patient is a premenopausal woman presenting for annual examination, accompanied by her young daughter. Doing well with no stationary steam engineer concerns. Status post check for Nexplanon insertion- doing well post insertion with no complications. Currently is not sexually active. She denies vaginal itching or irritation. STI screening offered; she declines, recently negative. She tries to eat healthy and stays active with exercise. Denies family history of breast or colon cancer. FH ovarian cancer. Last pap smear, 4 years ago, negative. [facility] Medical History Nexplanon insertion Pyloric stenosis No pertinent past medical history Surgical History Hx of section Family History Family/Other Ovarian cancer Father Thyroid cancer Social History Alcohol intake: current Alcohol intake frequency: holidays/special occasions only Patient Tobacco Use Status: Never used Tobacco Substance Use Type: Marijuana Female Reproductive History Menstrual Age of Menarche: 13 Duration of menses: 3-5 days Date of last menstrual period: 01/04/25 control method: implanted Total pregnancies: 3 Full term: 1 Number of Living Children: 1 Ab induced: 1 Ab spontaneous: 1 Date of last pap smear: 01/30/21 History of abnormal pap smear: No History of STI: Yes (hx chlamydia) Review of Systems Const All systems reviewed & are unremarkable except as noted in HPI and below Reports as per HPI Eyes Reports no additional complaints ENT Reports no additional complaints Card Reports no additional complaints Resp Reports no additional complaints GI Reports as per HPI and Reports no additional complaints Reports as per HPI Musc Reports no additional complaints Skin/Breast Reports as per HPI Neuro Reports no additional complaints Psych Reports no additional complaints Endo Reports no additional complaints Prakash/Lymph Reports no additional complaints Aller/Immun Reports no additional complaints Physical Exam Vital Signs: Last Vital Signs BP 98/56 L 02/11/25 11:12 BMI result Body Mass Index 20.9 Const General: cooperative, healthy appearing, no acute distress, well developed and alert Orientation/consciousness: patient oriented x3 HEENT Head: Yes normal to inspection Eyes General: appearance normal, both eyes and all related structures Neck Neck: Yes normal visual inspection Thyroid: Thyroid normal Chest Chest palpation & inspection: normal inspection of the chest and other (no puckering, dimpling, peau de orange, retraction, discharge, masses) Breast/axilla inspection: normal inspection of the breasts Breast/axilla palpation: normal palpation of the breasts Resp Effort & Inspection: normal respiratory effort GI Inspection: Yes normal to inspection Palpation (GI): Soft to palpation Rectal Exam - Female: deferred General: Yes bladder normal to palpation External Female Exam: normal external appearance and normal appearance of the urethra Speculum Exam - Vagina: normal appearance of the vagina, normal palpation and normal vaginal discharge Speculum Exam - Cervix: normal appearance of the cervix and normal palpation Bimanual exam- vagina & uterus: normal bimanual exam, normal palpation, uterine size normal, bladder normal to palpation, normal palpation and non-tender Bimanual Exam- Adnexa, other: no masses Skin General skin exam: no rashes or lesions noted Rashes: no rashes Neuro General: patient oriented x3 Cognition (Neuro): normal cognition Extrem General: Yes normal to inspection Left upper extremity: normal to inspection (Implant easily palpated well healed and nontender) Psych Attitude: cooperative Thought process: Normal thought process present Assessment & Plan Assessment & Plan (1) Encounter for well woman exam with routine gynecological exam: Code(s): Z01.419 - Encounter for gynecological examination (general) (routine) without abnormal findings Category: Medical Plan: Discussed: Current recommendations for pap smears per ASCCP guidelines. Pap obtained. Breast awareness and periodic breast exams. Maintain a healthy lifestyle including a well balanced diet and routine exercise. Use condoms for STI and prevention. Patient verbalizes understanding and agrees to the plan of care. She was given opportunity to ask questions and all questions were answered to the best of my ability. RTO in one year for annual stationary steam engineer examination. This note is constructed using voice recognition software. While every effort has been made to ensure accuracy, sales administrator errors may have been included. (2) Encounter for surveillance of Nexplanon subdermal contraceptive: Code(s): Z30.46 - Encounter for surveillance of implantable subdermal contraceptive Plan Advised to call if there is any concerns for implant site. Monitor menstrual cycles and report any heavy prolonged episodes. The patient expressed understanding and agreement with the plan of care. All of her questions and concerns were addressed to the best of my ability. Total time I personally spent on visit and management today: ?10 minutes. Time spent included review of pertinent office notes in the electronic health record; review of laboratory and imaging results; review of personal family medical history; performing physical exam; discussing diagnosis and plan of care with the patient; documenting the encounter in the EMR. This note is constructed using voice recognition software. While every effort has been made to ensure accuracy, sales administrator errors may have been included. Orders: Orders Pap Smear Today Z12.4 - Encounter for screening for malignant neoplasm of cervix Coding Level of Care Code Est Pt Level 2 (96180) Est Pt Prev Care 18-39y(60427) Diagnoses Encounter for well woman exam with routine gynecological exam Z01.419 Encounter for surveillance of Nexplanon subdermal contraceptive Z30.46
[2025-02-11 11:12] VITALS: BP 98/56; BMI 20.9
--- OUTSIDE RECORDS SUMMARY | 2025-02-11 11:47 | XMS_ITS | Clinical Summary ---
Author Organization [facility] Address [address] [place] [address] Care Team Providers Care Riveting Machine Operator Name Role Phone Pcp, No Primary [...] (07/18/2021): Added automatically from request for surgery [id number] Migraine with aura and witho ut status [...] 65 07/21/2021 3:00 AM EST Temperature 36.6 C (97.9 F) 07/21/2021 3:00 AM EST Respiratory Rate 16 07/21/2021 3:00 AM EST [...] Diet On track( 021 2:10 PM EST) Hyacinth Rutledge RN Procedures [...] <1.00 MEDITECH CONVERSION Comment: Test performed at [facility] [address] [place] [address] [address] [address] Director: HUSSEIN TODD MD 06/02/2018 10:1 8 AM EST 06/02/2018 10:18 AM EST Ish Hare MD HX LAB Final Result MEDITECH CONVERSION from Last 3 Months or Most Recently Relevant to Health Maintenance Insurance [facility] HMO [facility] [employer] HMO Advance Directives * Full Code (Latest Code Status on File) Date Activated Date Inactivated Comments 07/18/2021 2:23 PM * Full Code Date Activated Date Inactivated Comments 07/18/2021 2:47 AM 07/18/2021 2:23 PM * Full Code Date Activated Date Inactivated Comments 08/31/2019 2:11 PM 11/23/2019 8:57 AM Care Teams Riveting Machine Operator Relationship Specialty Start Date End Date Pcp, No PCP - General General Medicine 08/31/19
--- OUTSIDE RECORDS SUMMARY | 2025-02-11 11:48 | XMS_ITS | Patient Health Record ---
Author Organization [facility] Address [address] [facility] [address] [place] [id number] Care Team Providers Care Ceiling Insulation Blower Name Role Phone Orville CUMMINGS, [place] Primary Care Provider JESSICA Bradshaw Unavailable [phone] Reason For Referral No Information Medications Medication SIG (Take, Route, Frequency, Duration) Notes Start Date End Date Status Flovent HFA 110 MCG/ACT 1 puff Inhalatio n Twice a day Active Ventolin HFA 108 (90 Base) MCG/ACT 2 puffs as needed Inhalation every 4 hrs Active Doxycycline Monohydrate 100 MG 1 capsule Orally Once a day Active Problems Problem Type SNOMED Code ICD Code Onset Dates Problem Status W/U Status Risk Notes Problem Concussion injury of brain (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) Concussion (850.9) Active confirmed Plan Of Treatment No Information Insurance Providers Payer Name Payer Address Payer Phone Subscriber Number Group Number Insured Name Patient Relationship to Insured Coverage Start Date Coverage End Date [facility] [address] [place], [place] [id number] EPI CALDWELL Natural Child - Insured does not have Financial Responsibility (includes legally adopted child) MEDICAID [address] [place] [id number] [place] CALDWELL Self - patient is the insured Medical (General) History Medical History History ICD Code Asthma Lymes Disease Surgical History Surgery Date(Month/Year) Pyloric stenosis 1996
--- OUTSIDE RECORDS SUMMARY | 2025-02-11 11:48 | XMS_ITS | Patient Health Record ---
Author Organization [facility] Address [address] [facility] [place] [address] Care Team Providers Care Bi Data Architect Name Role Phone Raina Borja Unavailable [phone] Reason For Referral No Information Medications Medication SIG (Take, Route, Frequency, Duration) Notes Start Date End Date Status EMGALITY PEN [facility] Interaction Alert[facility]* 10/21/2020 Active Ubrelvy 50 MG Tablet Oral 10/21/2020 Active Ubrelvy 100 MG Tablet Oral 10/21/2020 Active Acetaminophen-Codei ne #3 300-30 MG Tablet Oral 10/21/2020 Active Social History Social History Additional Details Category Social Info Options Details Migrated Social History Migrated Social History Alcohol Intake: Occasional 08/16/2020,Tobacco Years: Current every day smoker 08/16/2020, Plan Of Treatment No Information Insurance Providers Payer Name Payer Address Payer Phone Subscriber Number Group Number Insured Name Patient Relationship to Insured Coverage Start Date Coverage End Date [employer] [address] [place], [place] [id number] Self - patient is the insured [employer]-[place] (Med[employer]) [address] [place], [place] [id number] AFSHIN CALDWELLEN Self - patient is the insured
== END 2025-02-11 11:46 | disposition home or self-care (01) ==
LOC: HO.HWS 11:00
PROVIDERS: Visit Provider Advanced Practice Midwife
DX: Z01.419 Encounter for gynecological examination (general) (routine) without abnormal findings (principal); Z30.46 Encounter for surveillance of implantable subdermal contraceptive
CPT/HCPCS: 99395; 99459